=== PATIENT | female | born 1990 | race African-American/Black ===

== ENCOUNTER 2016-09-27 13:36 | Emergency (ER) | payer OTHER ==
[~2016-09-27] VITALS: Ht 177.8 cm; Wt 81.2 kg
[2016-09-27 13:36] VITALS: BP 117/76
[~2016-09-27 13:36] MED LIST: BACTRIM DS TAB1 EACH PO; BENADRYL25 MG PO; CORTIZONE-1028 GM TP; DOXYCYCLINE 10100 MG PO; FLAGYL500 M1 PO; FLAGYL500 MG PO; KEFLEX500 MG PO; MOBIC15 MG PO; NAPROSYN500 MG PO; NOHOMEMEDICATIONS; NORCO 5-325 TA1 EACH PO; PRILOSEC 20 MG20 MG PO
[2016-09-27 13:58] LABS: URINE BILIRUBIN NEGATIVE (Negative); URINE BLOOD NEGATIVE (Negative); URINE COLOR YELLOW; URINE GLUCOSE-RANDOM* NEGATIVE (Negative); URINE KETONES NEGATIVE (Negative); URINE NITRITE NEGATIVE (Negative); URINE PROTEIN (DIPSTICK) NEGATIVE (Negative); URINE SPECIFIC GRAVITY >= 1.030 (1.003-1.035); URINE UROBILINOGEN 0.2 E.U./dl (0.2-1.0)
[2016-09-27 14:42] LABS: SQUAMOUS >10 Many /LPF (0-3)
[2016-09-27 14:43] LABS: CASTS None Seen /LPF (None Seen); URINE RBC 0-2 Rare /HPF (0-2)
[2016-09-27 14:44] LABS: BACTERIA >30 Many /HPF (None Seen); CRYSTALS None Seen /LPF (None Seen)
[2016-09-30 13:08] LABS: CHLAMYDIA TRACHOMATIS-PCR Negative (Negative); NEISSERIA GONORRHEA-PCR Negative (Negative)
== END 2016-09-27 15:17 | disposition home or self-care (01) ==
LOC: ER 13:36
PROVIDERS: Physician Assistant
DX: N89.8 Other specified noninflammatory disorders of vagina (principal); Z20.2 Contact with and (suspected) exposure to infections with a predominantly sexual mode of transmission

== ENCOUNTER 2017-12-03 15:46 | Emergency (ER) | payer OTHER ==
[~2017-12-03] VITALS: Ht 177.8 cm; Wt 83.5 kg
[2017-12-03] MEDS ORDERED: BACTRIM DS TAB1 EACH PO (16:12)
[2017-12-03] MEDS ORDERED: ULTRAM 50MG TAB50 MG PO (16:12)
== END 2017-12-03 16:30 | disposition home or self-care (01) ==
LOC: ER 15:46
DX: L03.317 Cellulitis of buttock (principal); L73.9 Follicular disorder, unspecified